=== PATIENT | female | born 1995 | race Hispanic/Latino ===

== ENCOUNTER 2018-08-20 00:15 | Inpatient (IN) | payer OTHER ==
[2018-08-20] MEDS ORDERED: Ibuprofen 800 MG TAB PO PRN (00:49)
[2018-08-20] MEDS ORDERED: Lidocaine 1% (PF) 30 ML VIAL SC PRN (00:49)
[2018-08-20] MEDS ORDERED: Promethazine HCl 25 MG/ML VIAL IM PRN ×3 (00:49→17:00)
[2018-08-20] MEDS ORDERED: Ondansetron PF 4 MG/2 ML Vial IVP PRN ×3 (00:49→17:00)
[2018-08-20] MEDS ORDERED: NS / Oxytocin 40 units/1000ml 1,000 ML IV PRN (00:49)
[2018-08-20] MEDS ORDERED: Penicillin G Potassium 5 MILL.UNITS in Sodium Chloride 0.9% 100 ML IVPB SCH (01:00)
[2018-08-20 01:39] VITALS: BMI 33.9
[2018-08-20 01:51] LABS: Hemoglobin 11.6 g/dL (12.0-16.0); Mean Corpuscular HGB CONC 34.1 g/dL (32.0-36.0); Mean Corpuscular Hemoglobin 28.7 pg (27.0-31.0); Mean Corpuscular Volume 84.3 fL (78.0-98.0); Mean Platelet Volume 11.5 fL (7.4-10.4); Platelet Count 135 thou/uL (130-400); RBC Distribution Width 13.3 % (11.5-14.5); Red Blood Cell (RBC) Count 4.02 mill/uL (4.20-5.40); White Blood Cell (WBC) Count 12.4 thou/uL (4.8-10.8)
[2018-08-20] MEDS ORDERED: Fentanyl 4 mcg/Bup 0.1% Cadd 100 ML ONE ×3 (01:57→15:11)
[2018-08-20] MEDS ORDERED: Butorphanol Tartrate 1 MG/ML VIAL ONE (02:07)
[2018-08-20] MEDS ORDERED: Butorphanol Tartrate 1 MG/ML VIAL SLOW IVP PRN (02:08)
[2018-08-20] MEDS: Penicillin G 2.5 MILL.units 2.5 MILL.UNITS in Premix Bag 1 BAG IVPB SCH ×5 (02:12→19:04)
[2018-08-20] MEDS: Lactated Ringer's 1,000 ML IV SCH ×3 (02:13→19:03)
[2018-08-20 02:52] LABS: HBSAg Index 0.31 S/CO (0-0.99); Hep B Surf Ag Non-Reactive S/CO (NonReactive)
[2018-08-20] MEDS ORDERED: diphenhydrAMINE 50 MG/ML VIAL IVP PRN ×2 (03:07→17:00)
[2018-08-20] MEDS ORDERED: Lactated Ringer's 500 ML IV PRN (03:07)
[2018-08-20] MEDS ORDERED: ePHEDrine/0.9% NaCl/PF SYRINGE 50 mg/10 ml SLOW IVP PRN (03:07)
[2018-08-20] MEDS ORDERED: Acetaminophen 325 MG TAB PO PRN (03:07)
[2018-08-20] MEDS ORDERED: Naloxone HCl 0.4 mg/ml Vial IVP PRN ×4 (03:07→17:00)
[2018-08-20] MEDS ORDERED: Communication Order-Pharmacy FS SCH ×2 (03:15→17:00)
[2018-08-20 04:57] LABS: Syphilis Antibody Nonreactive (Nonreactive); Syphilis Antibody Index 0.03 S/CO (<1.00 Non-Reactive)
--- NOTE | 2018-08-20 07:04 | PDOC.LDHP ---
Labor and Delivery H&P Chief complaint: contractions HPI: 22 yo G1 @ 38w4d by LMP c/w 10 week CRL admit for latent labor. Antepartum course benign. MFM consult during for possible arrhythmia, however, work up was normal ( echo and MFM sono). GBS +. Current gestational age (weeks): 38 Due date: 08/30/18 Dating criteria: last menstrual period Grav: 1 Para: 0 Current complications: none Abnormal US findings: No Past Medical History: Anemia Current medications: pre- vitamins Previous surgical history: none Allergies/Adverse Reactions: Allergies Allergy/AdvReac Type Severity Reaction Status Date / Time No Known Allergies Allergy Verified 08/20/18 01:44 Social history: none - Physical Exam Vital signs reviewed and normal: yes FHT: category 1 (120s, mod seth, +accels, no decels) [place] contractions every: q5 min - Vaginal Exam cm dilated: 4 (per RN ) Effacement: 90% Station: -1 - OB Labs Blood type: A RH: positive Antibody Screen: negative HIV: negative RPR: negative HEPSAg: negative 1 hour GCT: negative GBS: positive Urine drug screen: negative Rubella: immune - Assessment L&D Assessment: term patient in labor - Plan Plan: admit to L&D, labor augmentation if indicated, GBS antibiotic prophylaxis , informed consent obtained, anesthesia consult for pain management
[2018-08-20] MEDS ORDERED: NS w/ Oxytocin 10 units 500 ML ONE (07:11)
[2018-08-20] MEDS: NS w/ Oxytocin 10 units 500 ML IV SCH (07:21)
[2018-08-20] MEDS: Fentanyl 4 mcg/Bupivacaine 0.1% Cassette 100 ML EPIDURAL SCH ×2 (09:51→15:13)
--- NOTE | 2018-08-20 15:01 | PDOC.LDPN ---
Labor & Delivery Progress Note - Subjective Subjective: comfortable - Objective Vital signs reviewed and normal: yes General: NAD Uterine fundus: non tender Dilation: 6 Effacement: 90% Station: 0 FHT: category 1 (130s, mod seth, +accels, no decels ) [place] contractions every: q2 min, adequate MVUs - Assessment (1) 38 weeks gestation of Code(s): Z3A.38 - 38 WEEKS GESTATION OF Current Visit: Yes Status : Acute (2) Labor abnormality Code(s): O62.9 - ABNORMALITY OF FORCES OF LABOR, UNSPECIFIED Current Visit: Yes Status: Acute (3) Group B streptococcal carriage complicating Code(s): O99.820 - STREPTOCOCCUS B CARRIER STATE COMPLICATING Current Visit: Yes Status: Acute -: Reviewed protracted course with pt. Now adequate MVUs and IUPC in place > 4 hrs with minimal change. Fetus OP position confirmed on US. Suspect EFW 8+ lbs. Will recheck @ 4 pm and if no change will recommend PLTCS and pt amenable. Continue current mgmt at this time.
--- NOTE | 2018-08-20 15:58 | PDOC.EVN ---
Event Note - Event Note Event Note: SVE unchanged. Protracted labor course and now no chance with > 4 hours adequate MVUs. Fetus OP and suspect possible macrosomia. Recommended PLTCS and pt amenable. To OR. Anceph and Azithromycin for PPX.
[2018-08-20] MEDS ORDERED: Bicitra 30 ML UDCUP PO SCH (16:00)
[2018-08-20] MEDS ORDERED: Bicitra 30 ML UDCUP ONE (16:00)
[2018-08-20] MEDS ORDERED: CEFAZOLIN 2 GM in Premix Bag 1 BAG IVPB SCH (16:00)
[2018-08-20] MEDS ORDERED: Azithromycin 500 MG VIAL ONE (16:01)
[2018-08-20] MEDS ORDERED: Lidocaine 2% 10 ML INJ ONE (16:02)
[2018-08-20] MEDS ORDERED: EPINEPHrine 1 MG/ML AMP ONE (16:02)
[2018-08-20] MEDS ORDERED: Azithromycin 500 MG in Sodium Chloride 0.9% 250 ML 250 ML IVPB SCH (16:30)
[2018-08-20] MEDS ORDERED: Ondansetron PF 4 MG/2 ML Vial ONE ×2 (16:31→16:53)
[2018-08-20] MEDS ORDERED: MORPHINE 5 MG/10 ML PF VIAL ONE (16:31)
[2018-08-20] MEDS ORDERED: Dexamethasone 4 mg/ml Vial ONE (16:31)
[2018-08-20] MEDS ORDERED: Ketorolac Tromethamine 30 MG/ML VIAL ONE ×2 (16:31→17:04)
[2018-08-20] MEDS ORDERED: Oxytocin 10 UNITS/ML VIAL ONE (16:31)
[2018-08-20] MEDS ORDERED: Fentanyl 100 MCG/2 ML VIAL ONE (16:45)
[2018-08-20] MEDS ORDERED: Methylergonovine 0.2 MG/ML VIAL ONE (16:50)
[2018-08-20] MEDS ORDERED: Acetaminophen 1,000 MG in Premix Bag 1 BAG IVPB PRN (16:59)
[2018-08-20] MEDS ORDERED: Ondansetron HCl/PF 4 MG/2 ML Vial IVP PRN (17:00)
[2018-08-20] MEDS ORDERED: Ketorolac Tromethamine 30 MG/ML VIAL IVP SCH (17:00)
[2018-08-20] MEDS ORDERED: Naloxone HCl 0.4 mg/ml Vial IV PRN (17:00)
[2018-08-20] MEDS ORDERED: Promethazine HCl 25 MG SUPP PR PRN (17:00)
--- NOTE | 2018-08-20 17:23 | PDOC.OPDEL ---
OB Operative/Delivery Note Delivery Dr/Surgeon: Claudia Smyth DO Assist: Alton Dennis MD and Harley Erazo MD Pre-Delivery Diagnosis: arrest of dilation Procedure/Post Delivery Dx: primary low transverse CS Weeks gestation: 38 Anesthesia: epidural - Findings A Sex: male Weight: 8 lb 4 oz - 1 min: 8 - 5 min: 9 - Additional Findings/Plan Placenta delivered: manual removal findings: low transverse hysterotomy without extension, normal uterus, normal tubes, normal ovaries Estimated blood loss: QBL 595 cc Compilations/Other Findings: Male in OP position. Clear amniotic fluid Uterine atony initially, which resoled when given pitocin and methergine. Post delivery plan: routine recovery
[2018-08-20] MEDS: Ketorolac Tromethamine 30 MG/ML VIAL IVP SCH ×2 (19:03→23:37)
[2018-08-20] MEDS ORDERED: NS / Oxytocin 40 units/1000ml 1,000 ML IV SCH (19:56)
[2018-08-20] MEDS ORDERED: Methylergonovine 0.2 MG/ML VIAL IM PRN (19:56)
[2018-08-20] MEDS ORDERED: Misoprostol 200 MCG TAB PR PRN (19:56)
[2018-08-20] MEDS ORDERED: Lanolin Ointment 7 GM TUBE TOP PRN (19:56)
[2018-08-20] MEDS: Docusate Calcium (SURFAK) 240 MG CAP PO SCH (22:36)
[2018-08-21] MEDS: Lactated Ringer's 1,000 ML IV SCH ×3 (03:38→22:05)
[2018-08-21] MEDS: Ketorolac Tromethamine 30 MG/ML VIAL IVP SCH ×3 (05:20→19:29)
[2018-08-21 05:22] LABS: #Lymphocytes 1.6 thou/uL (1.20-3.40); #Monocytes 0.9 thou/uL (0.11-0.59); #Neutrophils 10.8 thou/uL (1.40-6.50); %Basophils 0.1 % (0.0-1.0); %Eosinophils 0.2 % (0.0-10.0); %Lymphocytes 11.9 % (21.0-51.0); %Monocytes 6.9 % (0.0-10.0); %Neutrophils 80.9 % (42.0-75.0); Hemoglobin 9.5 g/dL (12.0-16.0); Mean Corpuscular HGB CONC 32.5 g/dL (32.0-36.0); Mean Corpuscular Volume 86.1 fL (78.0-98.0); Mean Platelet Volume 11.8 fL (7.4-10.4); Platelet Count 120 thou/uL (130-400); RBC Distribution Width 13.3 % (11.5-14.5); Red Blood Cell (RBC) Count 3.39 mill/uL (4.20-5.40); White Blood Cell (WBC) Count 13.4 thou/uL (4.8-10.8)
--- NOTE | 2018-08-21 07:32 | PDOC.PP ---
Post Progress Note Post Day #: 1 Subjective: No concerns. Pain and bleeding minimal. Breast feeding. Nogueira still in, removing this AM. PO intake tolerated: yes Flatus: yes Ambulation: no Vital Signs (12 hours) Temp Pulse Resp BP Pulse Ox 08/21/18 05:20 98.3 F 70 16 104/64 08/20/18 23:35 99.3 F 71 16 113/54 L 08/20/18 21:00 68 16 137/81 08/20/18 20:10 99.1 F 71 16 141/86 H 98 Weight Weight 204 lb - Physical Examination General: NAD Cardiovascular: RRR Respiratory: non-labored breathing Abdominal: no distention, appropriately TTP Fundus firm & at: below umbilicus Extremities: negative homans (B) Skin: CS incision dry & intact, no rash Neurological: no gross focal deficits Psychiatric: A&Ox3, normal affect Result Diagrams: 08/21/18 05:02 Additional Labs: Post Labs Blood Type A POSITIVE 08/20/18 02:10 Hep Bs Antigen Non-Reactive S/CO (NonReactive) 08/20/18 01:41 (1) 38 weeks gestation of Code(s): Z3A.38 - 38 WEEKS GESTATION OF Status: Resolved (2) Labor abnormality Code(s): O62.9 - ABNORMALITY OF FORCES OF LABOR, UNSPECIFIED Status: Resolved (3) Group B streptococcal carriage complicating Code(s): O99.820 - STREPTOCOCCUS B CARRIER STATE COMPLICATING Status : Resolved (4) delivery delivered Code(s): O82 - ENCOUNTER FOR DELIVERY WITHOUT INDICATION Status: Acute (5) Anemia Code(s): D64.9 - ANEMIA, UNSPECIFIED Status: Acute Qualifiers: Other causes of anemia: acute posthemorrhagic - Assessment/Plan PPD1 VSSAF Anemia expected post op due to QBL. Iron BID Continue PP care, remove nogueira. Plan for d/c tomorrow with infant if ready for d/c
--- NOTE | 2018-08-21 08:56 | OP ---
DATE OF PROCEDURE: 08/20/2018 PREOPERATIVE DIAGNOSES: 1. Thirty eight-week four-day intrauterine . 2. Arrest of dilation. POSTOPERATIVE DIAGNOSES: 1. Thirty eight-week four-day intrauterine . 2. Arrest of dilation. ASSISTANTS: 1. Alton Dennis MD. 2. Harley Erazo MD. PROCEDURE PERFORMED: Primary low-transverse delivery via Pfannenstiel skin incision. COMPLICATIONS: None. ANESTHESIA: Epidural . FINDINGS: Viable male infant, Apgars 8 and 9, in occiput posterior position and weighing 8 pounds and 4 ounces. Normal-appearing uterus, fallopian tubes, ovaries bilaterally. Normal-appearing placenta and clear amniotic fluid. IV FLUIDS: 1500 mL. URINARY OUTPUT: 300 mL. QUANTITATIVE BLOOD LOSS: 595 mL. INDICATIONS FOR THE PROCEDURE: Ms. Laurel Jimenez is a 22-year-old, G1, P0, at 38 weeks and 4 days who presented in main Labor. She underwent artificial rupture of membranes as well as Pitocin augmentation, achieving adequate contractions without cervical change. The patient was counseled and a primary delivery was recommended as it was thought that the infant was likely in occiput posterior position and possibly macrosomic. The patient was amenable to the plan. PROCEDURE IN DETAIL: The patient was brought to the operating room. She was placed in supine position with a leftward tilt. She had previously had a Carrington catheter placed and also had an epidural which was additionally dosed. The patient was then prepped and draped in sterile fashion. An official time-out was performed. She was given Ancef and azithromycin for surgical prophylaxis. A Pfannenstiel skin incision was made using the scalpel. This was carried down to the underlying fascial layer. The fascia was incised in the midline, extended bilaterally using Tafoya scissors. The superior aspect of the fascial incision was grasped using Ella clamps, tented upward, and dissected free from the underlying rectus abdominis muscles. The same was done to the inferior aspect of the fascial incision. The rectus abdominis muscles were bluntly and the peritoneum was grasped with the hemostat, elevated and incised. This incision was also extended using blunt dissection. The Pavel O retractor was then placed into the abdomen. A low-transverse hysterotomy was made using the scalpel and this was extended using blunt dissection. Amniotic membranes were ruptured noting clear amniotic fluid. Infant was delivered in cephalic presentation in occiput posterior position. The 's cord was clamped and cut and the was handed to awaiting neonatology team. Cord sample and cord blood were obtained. The placenta was delivered manually intact. The uterus was cleared of all clot and debris. The hysterotomy was closed in a running locking fashion from bilateral apices meeting in the midline using one Monocryl. There was uterine atony initially likely due to her prolonged labor course, so a dose of Methergine was given. With Methergine and Pitocin, the atony quickly resolved. The hysterotomy was hemostatic after closure. The pelvis was irrigated and cleared of all clot and debris. The fallopian tubes and ovaries were evaluated and normal in appearance. The right aspect of the hysterotomy did require an additional [id number] stitch. The Pavel O retractor was removed from the abdomen. The peritoneum was closed in a running fashion. The rectus abdominis muscles were evaluated and hemostatic. The fascia was closed in a running fashion using 0 PDS. The subcutaneous layer was copiously irrigated and hemostatic with the use of the Bovie. The subcutaneous layer was closed using 3-0 Vicryl and the skin was closed using 4-0 Monocryl and Dermabond. The patient tolerated the procedure well. There were no complications. All counts were correct x3. Job ID: [id number]
[2018-08-21] MEDS: Prenatal Vitamin 1 TAB PO SCH (09:32)
[2018-08-21] MEDS: Ferrous Sulfate 325 MG TAB PO SCH ×2 (09:33→17:28)
[2018-08-21] MEDS: Simethicone Chewable 80 MG TAB PO PRN ×2 (09:33→21:38)
[2018-08-21] MEDS: HYDROcodone/Acetaminophen 5/325 mg Tablet PO PRN ×2 (09:33→18:36)
[2018-08-21] MEDS: Docusate Calcium (SURFAK) 240 MG CAP PO SCH ×2 (09:33→21:38)
[2018-08-21] MEDS ORDERED: Bupivacaine 0.25% HCL 30 ML VIAL ONE (11:11)
[2018-08-21] MEDS ORDERED: Sodium Chloride 0.9% 10 ML ONE ×2 (11:59→18:03)
[2018-08-21] MEDS: Ibuprofen 800 MG TAB PO SCH (21:38)
[2018-08-21] MEDS: NS w/ Oxytocin 10 units 500 ML IV SCH (22:04)
[2018-08-22] MEDS: HYDROcodone/Acetaminophen 5/325 mg Tablet PO PRN ×2 (03:19→12:26)
[2018-08-22] MEDS: Ibuprofen 800 MG TAB PO SCH (05:14)
[2018-08-22] MEDS: NS w/ Oxytocin 10 units 500 ML IV SCH (05:24)
[2018-08-22] MEDS: Docusate Calcium (SURFAK) 240 MG CAP PO SCH (09:08)
[2018-08-22] MEDS: Prenatal Vitamin 1 TAB PO SCH (09:08)
[2018-08-22] MEDS: Ferrous Sulfate 325 MG TAB PO SCH (09:08)
--- NOTE | 2018-08-22 09:14 | PDOC.PP ---
Post Progress Note Post Day #: 2 Subjective: Doing well. No concerns. breast feeding. Minimal pain and lochia. Voiding. PO intake tolerated: yes Flatus: yes Ambulation: yes Vital Signs (12 hours) Temp Pulse Resp BP Pulse Ox 08/22/18 08:21 98.5 F 68 20 120/67 100 08/22/18 03:20 97.6 F 75 16 127/84 08/21/18 23:40 98.4 F 63 16 107/56 L Weight Weight 204 lb - Physical Examination General: NAD Cardiovascular: RRR Respiratory: non-labored breathing Abdominal: no distention, appropriately TTP Fundus firm & at: below umbilicus Extremities: negative homans (B) Skin: CS incision dry & intact, no rash Neurological: no gross focal deficits Psychiatric: A&Ox3, normal affect Result Diagrams: 08/21/18 05:02 Additional Labs: Post Labs Blood Type A POSITIVE 08/20/18 02:10 Hep Bs Antigen Non-Reactive S/CO (NonReactive) 08/20/18 01:41 (1) 38 weeks gestation of Code(s): Z3A.38 - 38 WEEKS GESTATION OF Status: Resolved (2) Labor abnormality Code(s): O62.9 - ABNORMALITY OF FORCES OF LABOR, UNSPECIFIED Status: Resolved (3) Group B streptococcal carriage complicating Code(s): O99.820 - STREPTOCOCCUS B CARRIER STATE COMPLICATING Status : Resolved (4) delivery delivered Code(s): O82 - ENCOUNTER FOR DELIVERY WITHOUT INDICATION Status: Acute (5) Anemia Code(s): D64.9 - ANEMIA, UNSPECIFIED Status: Acute Qualifiers: Other causes of anemia: acute posthemorrhagic - Assessment/Plan PPD2 VSSAF Meeting requirements for d/c home with infant today.
[2018-08-22 11:12] VITALS: BP 130/57; TEMP 98.4
== END 2018-08-22 14:10 | disposition home or self-care (01) | DRG 787 ==
LOC: L&D/OP 00:15 → L&D 01:24 → 3SW 19:53
PROVIDERS: ADMIT Obstetrics & Gynecology; ATTEND Obstetrics & Gynecology
PROC: 10D00Z1 Extraction of Products of Conception, Low, Open Approach (ICD-10-PCS; principal; 2018-08-20)
DX: O99.824 Streptococcus B carrier state complicating childbirth (principal); D62 Acute posthemorrhagic anemia; O62.2 Other uterine inertia; O62.1 Secondary uterine inertia; O99.02 Anemia complicating childbirth; Z3A.38 38 weeks gestation of pregnancy; Z37.0 Single live birth
CPT/HCPCS: 36415; 51702; 76815; 85025; 85027; 86780; 86850; 86900; 86901; 87340; 96372; 99283; 99285; J0131; J0171; J0456; J0595; J0690; J1100; J1885; J2001; J2210; J2270; J2310; J2405; J2540; J2590; J3010; J3490; S0020

== ENCOUNTER 2023-01-09 12:42 | Inpatient (IN) | payer OTHER, SELFPAY ==
[2023-01-09 14:25] LABS: #Basophils 0.1 thou/uL (0.0-0.2); #Eosinphils 0.1 thou/uL (0.0-0.7); #Monocytes 0.5 thou/uL (0.11-0.59); #Neutrophils 4.7 thou/uL (1.40-6.50); %Basophils 0.8 % (0.0-1.0); %Eosinophils 0.7 % (0.0-10.0); %Lymphocytes 27.6 % (21.0-51.0); %Monocytes 6.8 % (0.0-10.0); %Neutrophils 63.8 % (42.0-75.0); Hematocrit 39.4 % (36.0-47.0); Hemoglobin 13.5 g/dL (12.0-16.0); Mean Corpuscular HGB CONC 34.3 g/dL (32.0-36.0); Mean Corpuscular Hemoglobin 30.7 pg (27.0-31.0); Mean Corpuscular Volume 89.5 fl (78.0-98.0); Mean Platelet Volume 11.7 fL (7.4-10.4); Platelet Count 260 10x3/uL (130-400); RBC Distribution Width 11.9 % (11.5-14.5); White Blood Cell (WBC) Count 7.3 10x3/uL (4.8-10.8)
[2023-01-09 14:40] LABS: BHCG - Serum Negative (NEGATIVE); Pregs Control Background? CLEAR/WHITE (CLR/WHITE); Pregs Control Bar Appear? YES (CONTROL BAR)
[2023-01-09 14:48] LABS: Troponin I Less than 0.010 ng/mL (< 0.028)
[2023-01-09 14:56] LABS: ALT (SGPT) 10 U/L (8-55); AST (SGOT) 15 U/L (5-34); Albumin 4.7 g/dL (3.5-5.0); Alkaline Phosphatase 55 U/L (40-110); Anion Gap 13 mmol/L (10-20); BUN (Urea Nitrogen) 7 mg/dL (7.0-18.7); Bilirubin, Total 0.4 mg/dL (0.2-1.2); Calc. Creatinine Clearance 0 mL/min (70-130); Calcium 9.7 mg/dL (7.8-10.44); Carbon Dioxide 25 mmol/L (22-29); Chloride 105 mmol/L (98-107); Estimated GFR 110; Globulin 2.5 g/dL (2.4-3.5); Glucose 95 mg/dL (70-105); Lipase 41 U/L (8-78); Magnesium 1.8 mg/dL (1.6-2.6); Potassium 4.3 mmol/L (3.5-5.1); Protein, Total 7.2 g/dL (6.0-8.3); Sodium 139 mmol/L (136-145)
[2023-01-09 15:58] LABS: Pregnancy Test - Urine (BHCG) Negative (Negative); Pregu Control Background? CLEAR/WHITE (CLR/WHITE); Pregu Control Bar Appear? YES (CONTROL BAR); Specific Gravity 1.009 (1.002-1.036)
[2023-01-09 15:59] LABS: Bacteria/HPF None Seen HPF (None Seen); Bilirubin Negative (Negative); Blood, Urine Negative (Negative); CAUTI Indications for Culture Dysuria,urgency,freq; Clarity Clear (Clear); Glucose, Urine (Dipstick) Normal (Negative); Ketone, Urine Negative (Negative); Leukocyte 25 Leu/uL (Negative); Nitrite Negative (Negative); Protein, Urine (Dipstick) Negative (Neg-Trace); RBC/HPF 0-3 HPF (0-3); Specific Gravity, Urine 1.009 (1.002-1.036); Squamous Epithelial 0-3 HPF (0-3); Urobilinogen Normal mg/dL (Less than 2); WBC/HPF 0-3 HPF (0-3); pH, Urine 6.5 (5.0-9.0)
[2023-01-09 16:00] LABS: Urine Culture Reflex No No
[2023-01-09] MEDS ORDERED: Acetaminophen 650 MG Suppository PR PRN (18:28)
[2023-01-09] MEDS ORDERED: Ondansetron PF 4 MG/2 ML Vial IVP PRN (18:28)
[2023-01-09 18:35] VITALS: BMI 29.9
[2023-01-09] MEDS: Sodium Chloride 0.9% 1,000 ML IV SCH (19:06)
[2023-01-09] MEDS: Acetaminophen 325 MG TAB PO PRN (20:42)
[2023-01-10 06:13] LABS: #Basophils 0.1 thou/uL (0.0-0.2); #Eosinphils 0.1 thou/uL (0.0-0.7); #Monocytes 0.5 thou/uL (0.11-0.59); #Neutrophils 3.5 thou/uL (1.40-6.50); %Basophils 0.8 % (0.0-1.0); %Eosinophils 0.8 % (0.0-10.0); %Lymphocytes 38.3 % (21.0-51.0); %Monocytes 6.9 % (0.0-10.0); %Neutrophils 52.9 % (42.0-75.0); Hematocrit 36.1 % (36.0-47.0); Hemoglobin 12.4 g/dL (12.0-16.0); Mean Corpuscular HGB CONC 34.3 g/dL (32.0-36.0); Mean Corpuscular Hemoglobin 30.4 pg (27.0-31.0); Mean Corpuscular Volume 88.5 fl (78.0-98.0); Platelet Count 226 10x3/uL (130-400); RBC Distribution Width 11.9 % (11.5-14.5); Red Blood Cell (RBC) Count 4.08 mill/uL (4.20-5.40); White Blood Cell (WBC) Count 6.7 10x3/uL (4.8-10.8)
[2023-01-10 06:31] LABS: Anion Gap 10 mmol/L (10-20); BUN (Urea Nitrogen) 7 mg/dL (7.0-18.7); Calc. Creatinine Clearance 149 mL/min (70-130); Carbon Dioxide 23 mmol/L (22-29); Chloride 109 mmol/L (98-107); Estimated GFR 116; Glucose 92 mg/dL (70-105); Potassium 3.4 mmol/L (3.5-5.1); Sodium 139 mmol/L (136-145)
[2023-01-10] MEDS: Acetaminophen 325 MG TAB PO PRN ×3 (06:59→16:18)
[2023-01-10] MEDS ORDERED: Potassium Chloride 20 MEQ TAB PO SCH (08:45)
[2023-01-10] MEDS: Sodium Chloride 0.9% 1,000 ML IV SCH (10:43)
[2023-01-10] MEDS: methylPREDNISolone Sod Succ 1 GM, Admixture Fee 1 EACH in Sodium Chloride 0.9% 250 ML 2... IVPB SCH (12:59)
[2023-01-10] MEDS ORDERED: Magnevist 469MG/ML 20 ML VIAL ONE (14:12)
[2023-01-10] MEDS ORDERED: Ibuprofen 200 MG TAB PO SCH (16:45)
[2023-01-10] MEDS ORDERED: Ketorolac Tromethamine 30 MG/ML VIAL IVP SCH (20:30)
[2023-01-11] MEDS: Sodium Chloride 0.9% 1,000 ML IV SCH ×2 (01:27→13:21)
[2023-01-11] MEDS ORDERED: HYDROcodone/Acetaminophen 5/325 mg Tablet PO PRN (03:44)
[2023-01-11] MEDS ORDERED: Morphine 2 MG/ML VIAL SLOW IVP SCH (06:00)
[2023-01-11 07:45] LABS: Anion Gap 15 mmol/L (10-20); BUN (Urea Nitrogen) 9 mg/dL (7.0-18.7); Calc. Creatinine Clearance 160 mL/min (70-130); Carbon Dioxide 19 mmol/L (22-29); Chloride 110 mmol/L (98-107); Estimated GFR 122; Glucose 145 mg/dL (70-105); Magnesium 1.5 mg/dL (1.6-2.6); Potassium 3.6 mmol/L (3.5-5.1); Sodium 140 mmol/L (136-145)
[2023-01-11] MEDS: methylPREDNISolone Sod Succ 1 GM, Admixture Fee 1 EACH in Sodium Chloride 0.9% 250 ML 2... IVPB SCH (11:41)
[2023-01-11] MEDS ORDERED: Magnesium 2 GM/50 ML(in water) 2 GM in Premix 1 BAG IVPB SCH (12:00)
[2023-01-11] MEDS: Gabapentin 300 MG CAP PO SCH (19:56)
[2023-01-12] MEDS: Sodium Chloride 0.9% 1,000 ML IV SCH ×2 (05:58→21:10)
[2023-01-12] MEDS: Gabapentin 300 MG CAP PO SCH ×2 (08:38→21:09)
[2023-01-12] MEDS: methylPREDNISolone Sod Succ 1 GM, Admixture Fee 1 EACH in Sodium Chloride 0.9% 250 ML 2... IVPB SCH (11:33)
[2023-01-12] MEDS ORDERED: Magnesium 2 GM/50 ML(in water) 2 GM in Premix 1 BAG IVPB SCH (14:45)
[2023-01-12 18:37] LABS: Magnesium 2.5 mg/dL (1.6-2.6)
[2023-01-13 04:55] LABS: #Monocytes 0.5 thou/uL (0.11-0.59); #Neutrophils 10.4 thou/uL (1.40-6.50); %Basophils 0.1 % (0.0-1.0); %Neutrophils 85.4 % (42.0-75.0); Hematocrit 34.6 % (36.0-47.0); Hemoglobin 11.8 g/dL (12.0-16.0); Mean Corpuscular HGB CONC 34.1 g/dL (32.0-36.0); Mean Corpuscular Hemoglobin 30.5 pg (27.0-31.0); Mean Corpuscular Volume 89.4 fl (78.0-98.0); Mean Platelet Volume 13.2 fL (7.4-10.4); Platelet Count 205 10x3/uL (130-400); RBC Distribution Width 12.2 % (11.5-14.5); Red Blood Cell (RBC) Count 3.87 mill/uL (4.20-5.40); White Blood Cell (WBC) Count 12.2 10x3/uL (4.8-10.8)
[2023-01-13 05:25] LABS: Anion Gap 11 mmol/L (10-20); BUN (Urea Nitrogen) 9 mg/dL (7.0-18.7); Calc. Creatinine Clearance 163 mL/min (70-130); Calcium 8.9 mg/dL (7.8-10.44); Carbon Dioxide 25 mmol/L (22-29); Chloride 107 mmol/L (98-107); Estimated GFR 123; Glucose 130 mg/dL (70-105); Potassium 3.6 mmol/L (3.5-5.1); Sodium 139 mmol/L (136-145)
[2023-01-13] MEDS: Gabapentin 300 MG CAP PO SCH ×2 (10:02→20:17)
[2023-01-13] MEDS: methylPREDNISolone Sod Succ 1 GM, Admixture Fee 1 EACH in Sodium Chloride 0.9% 250 ML 2... IVPB SCH (10:04)
[2023-01-13] MEDS: Sodium Chloride 0.9% 1,000 ML IV SCH (12:49)
[2023-01-13] MEDS ORDERED: Methocarbamol 500 MG TAB PO SCH (15:00)
[2023-01-13] MEDS: Methocarbamol 500 MG TAB PO SCH ×2 (16:41→20:17)
[2023-01-13] MEDS ORDERED: Bisacodyl 5 MG TAB PO PRN (19:08)
[2023-01-13] MEDS ORDERED: Senokot S 8.6-50 MG TAB PO PRN (19:08)
[2023-01-14] MEDS: Sodium Chloride 0.9% 1,000 ML IV SCH ×2 (03:14→14:47)
[2023-01-14 03:55] LABS: #Monocytes 0.7 thou/uL (0.11-0.59); #Neutrophils 9.7 thou/uL (1.40-6.50); %Basophils 0.1 % (0.0-1.0); %Lymphocytes 10.5 % (21.0-51.0); %Monocytes 5.7 % (0.0-10.0); %Neutrophils 82.3 % (42.0-75.0); Hemoglobin 12.5 g/dL (12.0-16.0); Mean Corpuscular HGB CONC 34.7 g/dL (32.0-36.0); Mean Corpuscular Hemoglobin 30.6 pg (27.0-31.0); Mean Platelet Volume 13.3 fL (7.4-10.4); Platelet Count 209 10x3/uL (130-400); RBC Distribution Width 12.1 % (11.5-14.5); Red Blood Cell (RBC) Count 4.09 mill/uL (4.20-5.40); White Blood Cell (WBC) Count 11.8 10x3/uL (4.8-10.8)
[2023-01-14 04:18] LABS: Anion Gap 16 mmol/L (10-20); BUN (Urea Nitrogen) 7 mg/dL (7.0-18.7); Calc. Creatinine Clearance 163 mL/min (70-130); Carbon Dioxide 23 mmol/L (22-29); Chloride 106 mmol/L (98-107); Estimated GFR 123; Glucose 127 mg/dL (70-105); Potassium 3.6 mmol/L (3.5-5.1); Sodium 141 mmol/L (136-145)
[2023-01-14] MEDS: Methocarbamol 500 MG TAB PO SCH ×2 (08:40→15:14)
[2023-01-14] MEDS: Gabapentin 300 MG CAP PO SCH (08:40)
[2023-01-14] MEDS: methylPREDNISolone Sod Succ 1 GM, Admixture Fee 1 EACH in Sodium Chloride 0.9% 250 ML 2... IVPB SCH (09:33)
[2023-01-14 11:43] VITALS: TEMP 97.5
[2023-01-14 12:26] VITALS: BP 120/72
== END 2023-01-14 17:45 | disposition home or self-care (01) | DRG 60 ==
LOC: ERS 12:42 → 2SE 15:38
PROVIDERS: ADMIT Internal Medicine; ATTEND Internal Medicine
DX: G35 Multiple sclerosis (principal); E87.6 Hypokalemia; K21.9 Gastro-esophageal reflux disease without esophagitis; R73.9 Hyperglycemia, unspecified; T38.0X5A Adverse effect of glucocorticoids and synthetic analogues, initial encounter; M79.2 Neuralgia and neuritis, unspecified; M62.838 Other muscle spasm; G47.00 Insomnia, unspecified; G37.9 Demyelinating disease of central nervous system, unspecified
CPT/HCPCS: 36415; 36416; 70450; 70553; 80048; 80053; 81001; 81025; 83605; 83690; 83735; 84443; 84484; 84703; 85025; 93005; 94760; A9579; J1885; J2272; J2405; J2930; J3475; J7050

== ENCOUNTER → 2023-01-21 | Day surgery (SDC) | payer OTHER ==
[~2023-01-21] MED LIST: FLU VACC QS2023-24(6MOS UP)/PF 60 MCG/0.5 ML SYRINGE IM ONE
[2023-01-21 09:54] LABS: #Basophils 0.1 thou/uL (0.0-0.2); #Eosinphils 0.1 thou/uL (0.0-0.7); #Monocytes 0.9 thou/uL (0.11-0.59); #Neutrophils 6.4 thou/uL (1.40-6.50); %Basophils 0.4 % (0.0-1.0); %Eosinophils 0.8 % (0.0-10.0); %Lymphocytes 35.6 % (21.0-51.0); %Monocytes 7.4 % (0.0-10.0); %Neutrophils 54.6 % (42.0-75.0); Hemoglobin 13.2 g/dL (12.0-16.0); Mean Corpuscular Hemoglobin 30.7 pg (27.0-31.0); Mean Platelet Volume 11.4 fL (7.4-10.4); Platelet Count 188 10x3/uL (130-400); RBC Distribution Width 13.2 % (11.5-14.5); White Blood Cell (WBC) Count 11.6 10x3/uL (4.8-10.8)
[2023-01-21 10:00] LABS: CSF, Glucose 59 mg/dl (40-70); CSF, Protein 28 mg/dL (15-40)
[2023-01-21 10:19] LABS: Immunoglob - A (Total IgA) 227 mg/dL (65-421); Immunoglob - G (Total IgG) 860 mg/dL (552-1631); Immunoglob - M (Total IgM) 151 mg/dL (33-293)
[2023-01-21 10:20] LABS: ALT (SGPT) 17 U/L (8-55); AST (SGOT) 10 U/L (5-34); Alkaline Phosphatase 43 U/L (40-110); Anion Gap 14 mmol/L (10-20); BUN (Urea Nitrogen) 14 mg/dL (7.0-18.7); Bilirubin, Total 0.6 mg/dL (0.2-1.2); CRP (Inflammatory) Less than 0.50 mg/dL (= or < 0.5); Calc. Creatinine Clearance 165 mL/min (70-130); Calcium 8.9 mg/dL (7.8-10.44); Carbon Dioxide 26 mmol/L (22-29); Chloride 104 mmol/L (98-107); Estimated GFR 122; Globulin 2.3 g/dL (2.4-3.5); Glucose 91 mg/dL (70-105); Potassium 4.2 mmol/L (3.5-5.1); Protein, Total 6.3 g/dL (6.0-8.3); Sodium 140 mmol/L (136-145)
[2023-01-21 10:35] LABS: Thyroid Stimulating Hormone 1.4382 uIU/mL (0.35-4.94)
[2023-01-21 10:42] LABS: Vitamin B12 638 pg/mL (211-911)
[2023-01-21 10:49] LABS: HBCM Index 0.07 S/CO (0-0.79); HBSAg Index 0.28 S/CO (0-0.99); HIV (1/2) Antibody/Antigen Non-Reactive (NonReactive); HIV 1/2 INDEX 0.31 S/CO (<1.00); Hep A IgM AB Non-Reactive S/CO (NonReactive); Hep A IgM S/CO 0.22 S/CO (0-0.79); Hep B Surf Ag Non-Reactive S/CO (NonReactive); Hep C IgG Ab Non-Reactive S/CO (NonReactive); Hep C Index 0.06 S/CO (0-0.79); Hepatitis B Core IgM Abs Non-Reactive S/CO (NonReactive)
[2023-01-21 13:09] LABS: CSF Source CSF; Clarity Clear (Clear); Tube # 1
[2023-01-21 13:46] LABS: Syphilis Antibody Nonreactive (Nonreactive); Syphilis Antibody Index 0.02 S/CO (<1.00 Non-Reactive)
[2023-01-21 14:56] LABS: ANA Symphony (Qualitative) Negative (Negative); ANA Symphony (Quantitative) 0.2 Ratio (< 0.7 Negative); dsDNA IgG Antibody Less than 0.6 IU/mL (<10 Negative)
[2023-01-24 15:13] LABS: VDRL, CSF Non Reactive (Non Rea:<1:1)
== END ==
LOC: RAD 06:53
PROVIDERS: ATTEND Psychiatry & Neurology Neurology
DX: G37.9 Demyelinating disease of central nervous system, unspecified (principal); G35 Multiple sclerosis; Z79.899 Other long term (current) drug therapy
CPT/HCPCS: 36415; 62270; 80053; 80074; 82040; 82042; 82607; 82746; 82784; 82945; 83916; 84157; 84425; 84443; 85025; 86038; 86140; 86225; 86592; 86612; 86618; 86635; 86698; 86780; 87389; 87529; 87899; 89051

== ENCOUNTER 2023-01-28 10:24 | Inpatient (IN) | payer SELFPAY ==
[2023-01-28 12:07] LABS: #Eosinphils 0.1 thou/uL (0.0-0.7); #Monocytes 0.5 thou/uL (0.11-0.59); #Neutrophils 4.3 thou/uL (1.40-6.50); %Basophils 0.6 % (0.0-1.0); %Eosinophils 1.1 % (0.0-10.0); %Lymphocytes 23.6 % (21.0-51.0); %Monocytes 7.7 % (0.0-10.0); %Neutrophils 66.7 % (42.0-75.0); Hematocrit 38.1 % (36.0-47.0); Hemoglobin 12.8 g/dL (12.0-16.0); Mean Corpuscular HGB CONC 33.6 g/dL (32.0-36.0); Mean Corpuscular Hemoglobin 31.1 pg (27.0-31.0); Mean Corpuscular Volume 92.7 fl (78.0-98.0); Mean Platelet Volume 11.3 fL (7.4-10.4); Platelet Count 176 10x3/uL (130-400); RBC Distribution Width 12.8 % (11.5-14.5); Red Blood Cell (RBC) Count 4.11 mill/uL (4.20-5.40); White Blood Cell (WBC) Count 6.5 10x3/uL (4.8-10.8)
[2023-01-28] MEDS ORDERED: methylPREDNISolone Sod Succ 1 GM in Sodium Chloride 0.9% 250 ML 250 ML IVPB SCH (12:15)
[2023-01-28] MEDS ORDERED: Dextrose 5% in Water 1,000 ML IV PRN (12:25)
[2023-01-28] MEDS ORDERED: Dextrose 50% Abboject 50 ML SYRINGE SLOW IVP PRN (12:25)
[2023-01-28] MEDS ORDERED: HumaLOG 300 UNITS/3 ML VIAL SC PRN ×2 (12:25)
[2023-01-28] MEDS ORDERED: Glucagon 1 MG/ML KIT IM PRN (12:25)
[2023-01-28] MEDS ORDERED: Acetaminophen 325 MG TAB PO PRN (12:31)
[2023-01-28] MEDS ORDERED: Ondansetron ODT 4 MG TAB PO PRN (12:31)
[2023-01-28 12:38] LABS: ALT (SGPT) 11 U/L (8-55); AST (SGOT) 11 U/L (5-34); Alkaline Phosphatase 47 U/L (40-110); Anion Gap 11 mmol/L (10-20); BUN (Urea Nitrogen) 9 mg/dL (7.0-18.7); Bilirubin, Total 0.7 mg/dL (0.2-1.2); Calc. Creatinine Clearance 0 mL/min (70-130); Calcium 9.2 mg/dL (7.8-10.44); Carbon Dioxide 27 mmol/L (22-29); Chloride 106 mmol/L (98-107); Estimated GFR 121; Globulin 2.6 g/dL (2.4-3.5); Glucose 88 mg/dL (70-105); Magnesium 1.8 mg/dL (1.6-2.6); Potassium 3.7 mmol/L (3.5-5.1); Protein, Total 6.6 g/dL (6.0-8.3); Sodium 140 mmol/L (136-145)
[2023-01-28 13:17] LABS: Bacteria/HPF None Seen HPF (None Seen); Bilirubin Negative (Negative); Blood, Urine 2+ (Negative); CAUTI Indications for Culture Immunosuppressed; Clarity Clear (Clear); Glucose, Urine (Dipstick) Normal (Negative); Ketone, Urine Negative (Negative); Leukocyte Negative Leu/uL (Negative); Nitrite Negative (Negative); Protein, Urine (Dipstick) Negative (Neg-Trace); RBC/HPF 0-3 HPF (0-3); Squamous Epithelial 0-3 HPF (0-3); Urobilinogen Normal mg/dL (Less than 2); WBC/HPF 0-3 HPF (0-3); pH, Urine 6.5 (5.0-9.0)
[2023-01-28 13:19] LABS: Pregnancy Test - Urine (BHCG) Negative (Negative); Pregu Control Background? CLEAR/WHITE (CLR/WHITE); Pregu Control Bar Appear? YES (CONTROL BAR)
[2023-01-28 13:21] LABS: Urine Culture Reflex Yes Yes
[2023-01-28 15:46] VITALS: BMI 30.9
[2023-01-28] MEDS: Gabapentin 300 MG CAP PO SCH (21:07)
[2023-01-29] MEDS ORDERED: Lidocaine 4% Patch TD SCH (04:15)
[2023-01-29] MEDS ORDERED: traMADol HCl 50 MG TAB PO SCH (04:15)
[2023-01-29 05:02] LABS: #Monocytes 0.1 thou/uL (0.11-0.59); #Neutrophils 8.1 thou/uL (1.40-6.50); %Basophils 0.1 % (0.0-1.0); %Lymphocytes 7.1 % (21.0-51.0); %Monocytes 0.6 % (0.0-10.0); Hematocrit 35.3 % (36.0-47.0); Hemoglobin 12.1 g/dL (12.0-16.0); Mean Corpuscular HGB CONC 34.3 g/dL (32.0-36.0); Mean Corpuscular Hemoglobin 30.6 pg (27.0-31.0); Mean Platelet Volume 11.8 fL (7.4-10.4); Platelet Count 181 10x3/uL (130-400); RBC Distribution Width 12.3 % (11.5-14.5); Red Blood Cell (RBC) Count 3.95 mill/uL (4.20-5.40); White Blood Cell (WBC) Count 8.8 10x3/uL (4.8-10.8)
[2023-01-29 05:15] LABS: Mean Corpuscular Volume 89.4 fl (78.0-98.0)
[2023-01-29 05:30] LABS: Anion Gap 14 mmol/L (10-20); BUN (Urea Nitrogen) 12 mg/dL (7.0-18.7); Calc. Creatinine Clearance 163 mL/min (70-130); Calcium 9.1 mg/dL (7.8-10.44); Carbon Dioxide 20 mmol/L (22-29); Chloride 108 mmol/L (98-107); Estimated GFR 122; Glucose 153 mg/dL (70-105); Potassium 3.5 mmol/L (3.5-5.1); Sodium 138 mmol/L (136-145)
[2023-01-29] MEDS: Ondansetron PF 4 MG/2 ML Vial IVP PRN (09:10)
[2023-01-29] MEDS: Gabapentin 300 MG CAP PO SCH ×2 (09:10→21:47)
[2023-01-29] MEDS: methylPREDNISolone Sod Succ 1 GM in Sodium Chloride 0.9% 250 ML 250 ML IVPB SCH (13:00)
[2023-01-29] MEDS ORDERED: Transdermal Patch Removal TOP SCH (16:15)
[2023-01-29] MEDS: Cyclobenzaprine 10 MG TAB PO PRN (21:48)
[2023-01-30 04:20] LABS: #Monocytes 0.2 thou/uL (0.11-0.59); #Neutrophils 12.4 thou/uL (1.40-6.50); %Basophils 0.1 % (0.0-1.0); %Lymphocytes 5.8 % (21.0-51.0); %Monocytes 1.8 % (0.0-10.0); %Neutrophils 91.9 % (42.0-75.0); Hematocrit 35.3 % (36.0-47.0); Mean Corpuscular Hemoglobin 30.8 pg (27.0-31.0); Mean Corpuscular Volume 90.7 fl (78.0-98.0); Mean Platelet Volume 11.8 fL (7.4-10.4); Platelet Count 184 10x3/uL (130-400); RBC Distribution Width 12.9 % (11.5-14.5); Red Blood Cell (RBC) Count 3.89 mill/uL (4.20-5.40); White Blood Cell (WBC) Count 13.5 10x3/uL (4.8-10.8)
[2023-01-30 04:49] LABS: Anion Gap 13 mmol/L (10-20); BUN (Urea Nitrogen) 12 mg/dL (7.0-18.7); Calc. Creatinine Clearance 163 mL/min (70-130); Calcium 9.4 mg/dL (7.8-10.44); Carbon Dioxide 22 mmol/L (22-29); Chloride 107 mmol/L (98-107); Estimated GFR 122; Glucose 145 mg/dL (70-105); Potassium 3.8 mmol/L (3.5-5.1); Sodium 138 mmol/L (136-145)
[2023-01-30] MEDS: Cyclobenzaprine 10 MG TAB PO PRN (08:52)
[2023-01-30] MEDS: Gabapentin 300 MG CAP PO SCH (08:53)
[2023-01-30] MEDS: Ondansetron PF 4 MG/2 ML Vial IVP PRN (08:54)
[2023-01-30] MEDS: methylPREDNISolone Sod Succ 1 GM in Sodium Chloride 0.9% 250 ML 250 ML IVPB SCH (12:02)
[2023-01-30 12:47] VITALS: BP 112/59; TEMP 98.5
== END 2023-01-30 14:04 | disposition home or self-care (01) | DRG 60 ==
LOC: ERS 10:24 → ERHOLD 12:05 → 2SE 14:09
PROVIDERS: ADMIT Internal Medicine; ATTEND Family Medicine
DX: G35 Multiple sclerosis (principal); G81.94 Hemiplegia, unspecified affecting left nondominant side; G51.0 Bell's palsy; G62.9 Polyneuropathy, unspecified; Z79.899 Other long term (current) drug therapy
CPT/HCPCS: 36415; 36416; 70553; 80048; 80053; 81001; 81025; 83735; 84443; 85025; 87086; J2405; J2930; J7050

== ENCOUNTER 2024-01-17 20:34 | Emergency (ER) | payer OTHER ==
[2024-01-17 21:16] LABS: #Basophils 0.05 10x3/uL (0.0-0.2); %Basophils 0.7 % (0.0-1.0); %Eosinophils 1.8 % (0.0-10.0); %Lymphocytes 24.7 % (21.0-51.0); %Monocytes 8.6 % (0.0-10.0); %Neutrophils 63.8 % (42.0-75.0); Hematocrit 38.1 % (36.0-47.0); Hemoglobin 12.8 g/dL (12.0-16.0); Mean Corpuscular HGB CONC 33.6 g/dL (32.0-36.0); Mean Corpuscular Hemoglobin 29.5 pg (27.0-31.0); Mean Corpuscular Volume 87.8 fL (78.0-98.0); Mean Platelet Volume 11.8 fL (7.4-10.4); Platelet Count 258 10x3/uL (130-400); RBC Distribution Width 11.8 % (11.5-14.5); Red Blood Cell (RBC) Count 4.34 mill/uL (4.20-5.40)
[2024-01-17 21:27] LABS: BHCG - Serum Negative (NEGATIVE); Pregs Control Background? CLEAR/WHITE (CLR/WHITE); Pregs Control Bar Appear? YES (CONTROL BAR)
[2024-01-17 21:31] LABS: ALT (SGPT) 13 U/L (8-55); AST (SGOT) 15 U/L (5-34); Albumin 3.9 g/dL (3.5-5.0); Alkaline Phosphatase 61 U/L (40-110); Anion Gap 12 mmol/L (10-20); BUN (Urea Nitrogen) 5 mg/dL (7.0-18.7); Bilirubin, Total 0.2 mg/dL (0.2-1.2); Calc. Creatinine Clearance 0 mL/min (70-130); Calcium 9.1 mg/dL (7.8-10.44); Carbon Dioxide 24 mmol/L (22-29); Chloride 108 mmol/L (98-107); Estimated GFR 119; Globulin 3.4 g/dL (2.4-3.5); Glucose 119 mg/dL (70-105); Potassium 3.7 mmol/L (3.5-5.1); Protein, Total 7.3 g/dL (6.0-8.3); Sodium 140 mmol/L (136-145)
[2024-01-17] MEDS ORDERED: Acetaminophen 500 MG TAB ONE (23:21)
[2024-01-17] MEDS ORDERED: Dexamethasone 10 MG/ML VIAL ONE (23:21)
[2024-01-17 23:54] LABS: Bacteria/HPF None Seen HPF (None Seen); Bilirubin Negative (Negative); Blood, Urine Negative (Negative); CAUTI Indications for Culture Dysuria,urgency,freq; Clarity Clear (Clear); Glucose, Urine (Dipstick) Normal (Negative); Ketone, Urine Negative (Negative); Leukocyte 25 Leu/uL (Negative); Nitrite Negative (Negative); Protein, Urine (Dipstick) 30 mg/dL (Neg-Trace); Specific Gravity, Urine 1.031 (1.002-1.036); Urobilinogen Normal mg/dL (Less than 2); WBC/HPF 0-3 HPF (0-3); pH, Urine 6.5 (5.0-9.0)
[2024-01-17 23:55] LABS: Urine Culture Reflex No No
[2024-01-18] MEDS ORDERED: diphenhydrAMINE 50 MG/ML VIAL ONE (01:12)
[2024-01-18] MEDS ORDERED: Ketorolac Tromethamine 30 MG (1 mL) VIAL ONE (01:12)
[2024-01-18] MEDS ORDERED: Metoclopramide HCl 10 MG (2 mL) VIAL ONE (01:12)
== END 2024-01-18 02:18 | disposition home or self-care (01) ==
LOC: ERS 20:34
DX: G35 Multiple sclerosis (principal); R51.9 Headache, unspecified
CPT/HCPCS: 36415; 70450; 80053; 81001; 84703; 85025; 87428; 93005; 96374; 96375; J1100; J1200; J1885; J2765